=== PATIENT | male | born 1980 | race Caucasian/White ===

== ENCOUNTER 2021-04-06 07:27 | Emergency (ER) | payer SELFPAY ==
[2021-04-06] MEDS ORDERED: Ketorolac 30 MG/ML SDV IVPUSH ONE (07:49)
[2021-04-06] MEDS ORDERED: Sodium Chloride 0.9% 10 ML Syringe FLUSH PRN (07:53)
[2021-04-06] MEDS ORDERED: Sodium Chloride 0.9% 1,000 ML IV ONE (08:28)
[2021-04-06] MEDS ORDERED: cefTRIAXone 1 GM Vial IVPUSH ONE (08:29)
--- NOTE | 2021-04-06 08:40 | EDM.PDOC ---
ED HPI GENERAL MEDICAL PROBLEM - General Chief Complaint: Abdominal Pain Stated Complaint: abdominal pain Time Seen by Provider: 04/06/21 07:50 Source of Information: Reports: Patient History Limitations: Reports: No Limitations - History of Present Illness INITIAL COMMENTS - FREE TEXT/NARRATIVE: c/o left sided abd pain x 2h felt fine yesterday, had usual BM at 5p, never had problems with constipation, no prior abd surgery awoke at 5a and had pain at his left flank, later radiated to left groin sat on stool and had only a small BM he lives between [place] and [place] and drove 50 minutes to the [employer] where he works, had inc'd pain at work, went out to his truck and could not get comfortable, was sweaty and decided to come to ED pain 03/28 on arrival, dec'd 6-12/26 after Toradol 30 mg IV no n/v, no f/c/d, no cough/sob on no meds, has h/o htn, had been on lisinopril but developed a cough and stopped it, he is agreeable to taking another med for BP that does not cause a cough he is a smoker Left Lower Abdomen Pain Score (Numeric/FACES): 10 - Related Data Allergies Allergy/AdvReac Type Severity Reaction Status Date / Time No Known Allergies Allergy Verified 04/06/21 07:42 Home Meds: Home Meds Amoxicillin/Potassium Clav [Augmentin 875-125 Tablet] 1 each PO BID #20 tablet 04/06/21 [Rx] amLODIPine [Norvasc] 5 mg PO DAILY #30 tab 04/06/21 [Rx] ED ROS GENERAL - Review of Systems Review Of Systems: See Below Constitutional: Reports: No Symptoms HEENT: Reports: No Symptoms Respiratory: Reports: No Symptoms Cardiovascular: Reports: No Symptoms Endocrine: Reports: No Symptoms GI/Abdominal: Reports: Abdominal Pain : Reports: No Symptoms Musculoskeletal: Reports: No Symptoms Skin: Reports: No Symptoms Neurological: Reports: No Symptoms Psychiatric: Reports: No Symptoms Hematologic/Lymphatic: Reports: No Symptoms Immunologic: Reports: No Symptoms ED EXAM, RENAL/ - Physical Exam Exam: See Below Exam Limited By: No Limitations General Appearance: Alert, WD/WN, Other (lying prone which he says is most comfortable, is able to roll onto back without difficulty, skin dry now) Ears: Hearing Grossly Normal Nose: Normal Inspection Throat/Mouth: Normal Inspection, Normal Lips, Normal Voice, No Airway Compromise Head: Atraumatic, Normocephalic Neck: Normal Inspection, Supple, Non-Tender, Full Range of Motion Respiratory/Chest: No Respiratory Distress, Lungs Clear, Normal Breath Sounds, Chest Non-Tender Cardiovascular: Regular Rate, Rhythm, No Edema, No Murmur GI/Abdominal: Normal Bowel Sounds, Soft, Other (1+ tender at left SCM, 1-2+ tender at left flank, 1+ tender along left colon down to left mid-inguinal line, nontender elsewhere, no CVAT, nl BS x 4, ND) Back Exam: Normal Inspection, Full Range of Motion. No: CVA Tenderness (R), CVA Tenderness (L) Extremities: Normal Inspection, Normal Range of Motion, Non-Tender, No Pedal Edema Neurological: Alert, Oriented, CN II-XII Intact, Normal Cognition, No Motor/Sensory Deficits Psychiatric: Normal Affect Skin Exam: Warm, Dry, Intact, Normal Color, No Rash Lymphatic: No Adenopathy Course - Vital Signs Last Recorded V/S: Last Vital Signs Temp 36.5 C 04/06/21 07:42 Pulse 84 04/06/21 07:42 Resp 24 H 04/06/21 07:42 BP 218/132 H 04/06/21 07:42 Pulse Ox 97 04/06/21 07:42 - Orders/Labs/Meds Orders: Active Orders 24 hr Category Date Time Status Abdomen Pelvis wo Cont [CT] Stat Exams 04/06/21 08:21 Ordered CULTURE URINE [RM] Stat Lab 04/06/21 08:29 Ordered Sodium Chloride 0.9% [Saline Flush] Med 04/06/21 07:53 Active 10 ml FLUSH ASDIRECTED PRN Saline Lock Insert [OM.PC] Routine Oth 04/06/21 07:53 Ordered Medication Orders Sodium Chloride (Sodium Chloride 0.9% 10 Ml Syringe) 10 ml FLUSH ASDIRECTED PRN PRN Reason: Keep Vein Open Last Admin: 04/06/21 07:55 Dose: 10 ml Documented by: JIMI Labs: Laboratory Tests 04/06/21 04/06/21 04/06/21 Range/Units 07:53 08:55 08:55 WBC 11.7 H (3.2-10.1) x10-3/uL RBC 5.46 (3.90-5.90) x10(6)uL Hgb 17.1 (12.9-17.7) g/dL Hct 52.2 H (38.3-50.1) % MCV 95.6 (80.8-98.7) fL MCH 31.3 (27.0-33.3) pg MCHC 32.7 (28.7-35.3) g/dL RDW 13.9 (12.4-15.0) % Plt Count 164 (117-477) x10(3)uL MPV 8.6 (6.7-11.0) fL Neut % (Auto) 79.9 H (40.3-71.8) % Lymph % (Auto) 11.4 L (15.8-45.3) % Bee % (Auto) 6.9 (5.5-15.2) % Eos % (Auto) 0.6 (0.1-6.8) % Baso % (Auto) 1.2 (0.3-3.8) % Neut # (Auto) 9.4 H (1.7-6.9) x10-3/uL Lymph # (Auto) 1.3 (0.5-4.5) x10-3/uL Bee # (Auto) 0.8 (0.0-1.2) x10-3/uL Eos # (Auto) 0.1 (0.0-0.6) x10-3/uL Baso # (Auto) 0.1 (0.0-0.3) x10-3/uL Sodium 142 (135-145) mmol/L Potassium 4.7 (3.5-5.3) mmol/L Chloride 104 (100-110) mmol/L Carbon Dioxide 28 (21-32) mmol/L BUN 14 (7-18) mg/dL Creatinine 1.2 (0.70-1.30) mg/dL Est Cr Clr Drug Dosing 88.90 mL/min Estimated GFR (MDRD) > 60 (>60) BUN/Creatinine Ratio 11.7 (9-20) Glucose 113 (80-116) mg/dL Calcium 9.4 (8.6-10.2) mg/dL Total Bilirubin 0.6 (0.1-1.3) mg/dL AST 42 H (5-25) IU/L ALT 80 H (12-36) U/L Alkaline Phosphatase 85 (56-112) IU/L C-Reactive Protein (0.5-0.9) mg/dL Total Protein 7.5 (6.0-8.0) g/dL Albumin 4.0 (3.5-5.2) g/dL Globulin 3.5 g/dL Albumin/Globulin Ratio 1.1 Urine Color Yellow (YELLOW) Urine Appearance Slightly cloudy (CLEAR) Urine pH 5.0 (5.0-6.5) Ur Specific [place] 1.030 H (1.010-1.025) Urine Protein 30 H (NEGATIVE) mg/dL Urine Glucose (UA) Normal (NORMAL) mg/dL Urine Ketones 15 H (NEGATIVE) mg/dL Urine Occult Blood Large H (NEGATIVE) Urine Nitrite Positive H (NEGATIVE) Urine Bilirubin Small H (NEGATIVE) Urine Urobilinogen 1 H (NEGATIVE) mg/dL Ur Leukocyte Esterase Small H (NEGATIVE) Urine RBC 40-50 H (0-5) Urine WBC 0-5 (0-5) Ur Squamous Epith Cells Few H (NS,R,O) Urine Bacteria Moderate H (NS) 04/06/21 Range/Units 08:55 WBC (3.2-10.1) x10-3/uL RBC (3.90-5.90) x10(6)uL Hgb (12.9-17.7) g/dL Hct (38.3-50.1) % MCV (80.8-98.7) fL MCH (27.0-33.3) pg MCHC (28.7-35.3) g/dL RDW (12.4-15.0) % Plt Count (117-477) x10(3)uL MPV (6.7-11.0) fL Neut % (Auto) (40.3-71.8) % Lymph % (Auto) (15.8-45.3) % Bee % (Auto) (5.5-15.2) % Eos % (Auto) (0.1-6.8) % Baso % (Auto) (0.3-3.8) % Neut # (Auto) (1.7-6.9) x10-3/uL Lymph # (Auto) (0.5-4.5) x10-3/uL Bee # (Auto) (0.0-1.2) x10-3/uL Eos # (Auto) (0.0-0.6) x10-3/uL Baso # (Auto) (0.0-0.3) x10-3/uL Sodium (135-145) mmol/L Potassium (3.5-5.3) mmol/L Chloride (100-110) mmol/L Carbon Dioxide (21-32) mmol/L BUN (7-18) mg/dL Creatinine (0.70-1.30) mg/dL Est Cr Clr Drug Dosing mL/min Estimated GFR (MDRD) (>60) BUN/Creatinine Ratio (9-20) Glucose (80-116) mg/dL Calcium (8.6-10.2) mg/dL Total Bilirubin (0.1-1.3) mg/dL AST (5-25) IU/L ALT (12-36) U/L Alkaline Phosphatase (56-112) IU/L C-Reactive Protein 0.3 L (0.5-0.9) mg/dL Total Protein (6.0-8.0) g/dL Albumin (3.5-5.2) g/dL Globulin g/dL Albumin/Globulin Ratio Urine Color (YELLOW) Urine Appearance (CLEAR) Urine pH (5.0-6.5) Ur Specific [place] (1.010-1.025) Urine Protein (NEGATIVE) mg/dL Urine Glucose (UA) (NORMAL) mg/dL Urine Ketones (NEGATIVE) mg/dL Urine Occult Blood (NEGATIVE) Urine Nitrite (NEGATIVE) Urine Bilirubin (NEGATIVE) Urine Urobilinogen (NEGATIVE) mg/dL Ur Leukocyte Esterase (NEGATIVE) Urine RBC (0-5) Urine WBC (0-5) Ur Squamous Epith Cells (NS,R,O) Urine Bacteria (NS) Meds: Medications Generic Name Dose Route Start Last Admin Trade Name Freq PRN Reason Stop Dose Admin Sodium Chloride 10 ml 04/06/21 07:53 04/06/21 07:55 Sodium Chloride 0.9% 10 Ml Syringe FLUSH 10 ml ASDIRECTED PRN Administration Keep Vein Open Discontinued Medications Generic Name Dose Route Start Last Admin Trade Name Freq PRN Reason Stop Dose Admin Ceftriaxone Sodium 1 gm 04/06/21 08:29 04/06/21 08:41 Ceftriaxone 1 Gm Vial IVPUSH 04/06/21 08:30 1 gm NOW ONE Administration Sodium Chloride 1,000 mls @ 999 mls/hr 04/06/21 08:28 04/06/21 08:41 Normal Saline IV 04/06/21 09:28 999 mls/hr .BOLUS ONE Administration Ketorolac Tromethamine 30 mg 04/06/21 07:49 04/06/21 07:55 Ketorolac 30 Mg/Ml Sdv IVPUSH 04/06/21 07:50 30 mg ONETIME ONE Administration - Re-Assessments/Exams Free Text/Narrative Re-Assessment/Exam: 04/06/21 10:47 there is 2 mm stone in the bladder on CT, pt now soft with no tenderness at LUQ or L flank, only mild tender still at left mid inguinal line there is an infiltrate in the RML suggestive of pneumonia per Dr Ordonez radiologist, however lungs remain clear, pt understands need for follow x-ray in 2 weeks with PCP to rule out an associated cancer pt has 5 children at home, says he gets every cold that they have will tx with Augmentin 875/125 bid x 10d to cover both UTI (thick bladder on CT, moderate bacteria in UA) and possible pneumonia Departure - Departure Time of Disposition: 10:31 Disposition: Home, Self-Care 01 Condition: Good Clinical Impression: Ureteral stone, Renal colic on left side, Urinary tract infection, Infiltrate of middle lobe of right lung present on imaging study, Elevated blood pressure reading with diagnosis of hypertension - Discharge Information *PRESCRIPTION DRUG MONITORING PROGRAM REVIEWED*: Not Applicable *COPY OF PRESCRIPTION DRUG MONITORING REPORT IN PATIENT MEJIA: Not Applicable Prescriptions: Amoxicillin/Potassium Clav [Augmentin 875-125 Tablet] 1 each PO BID #20 tablet amLODIPine [Norvasc] 5 mg PO DAILY #30 tab Instructions: Renal Colic, Kidney Stones, Urinary Tract Infection, Adult, Hypertension, Adult, How to Take Your Blood Pressure Referrals: PCP,None [Primary Care Provider] - Forms: ED Department Discharge, ED Return to Work/School Form Additional Instructions: For bladder infection and possible pneumonia of the right middle lobe, take amoxicillin-clavulanate 875/125 mg 1 tab 2 times a day for 10 days. For blood pressure, take amlodipine 5 mg 1 tab daily. For pain, if needed, take ibuprofen 200 mg 4 tabs 3 times a day. No work today. See your doctor in [place] in 2 weeks to followup the bladder infection and infiltrate in the lungs. Strain your urine today to catch the stone. Take the stone in with you to show your doctor. It is possible that you feel slightly fatigued these week as your body is adjusting to a more normal blood pressure. Be sure to get adequate rest. Sepsis Event Note (ED) - Evaluation Sepsis Screening Result: No Definite Risk - Focused Exam Vital Signs: Vital Signs Temp Pulse Resp BP Pulse Ox 04/06/21 07:42 36.5 C 84 24 H 218/132 H 97 - My Orders Last 24 Hours: My Active Orders 04/06/21 07:53 Sodium Chloride 0.9% [Saline Flush] 10 ml FLUSH ASDIRECTED PRN Saline Lock Insert [OM.PC] Routine 04/06/21 08:21 Abdomen Pelvis wo Cont [CT] Stat 04/06/21 08:29 CULTURE URINE [RM] Stat - Assessment/Plan Last 24 Hours: My Active Orders 04/06/21 07:53 Sodium Chloride 0.9% [Saline Flush] 10 ml FLUSH ASDIRECTED PRN Saline Lock Insert [OM.PC] Routine 04/06/21 08:21 Abdomen Pelvis wo Cont [CT] Stat 04/06/21 08:29 CULTURE URINE [RM] Stat
--- NOTE | 2021-04-06 11:10 | CT ---
CT ABDOMEN AND PELVIS WITHOUT CONTRAST INDICATION: 3 hours of left flank pain extending to groin, complains of renal colic. Also tender along left colon. TECHNIQUE: Spiral 3.75 mm axial sections were obtained through the abdomen and pelvis without contrast with sagittal and coronal reconstructions 04/06/21 - no comparisons. Total exam DLP was 1873.49 mGy/cm. FINDINGS: In the lower lung cowan and pleural spaces visualized, there is infiltration in the middle lobe which is fairly extensive in appearance and on the supervisor pumping station view appears to extend to the minor fissure. This appearance could be on the basis of pneumonia and it appears to be somewhat pleural based, raising the question of COVID-19. No other areas of infiltrate or effusion could be identified. The unusual appearance could be on the basis of atelectasis of a segmental nature. This should be correlated clinically. The heart did not appear enlarged. No pericardial effusion was seen. The liver is low in density compatible with a fatty liver. No gallstones were demonstrated. The adrenal glands, spleen and pancreas appeared normal. There is a normal appearance at the right kidney except for some minimal fat stranding which may be on the basis of bouts of pyelonephritis and should be correlated clinically. The left kidney showed a greater amount of renal fascial thickening as well as a mild pyelocaliectasis and ureterectasis with some periureteral fat stranding also noted. This appearance may be on the basis of infection and also appears to be on the basis of obstructive uropathy. At the left ureterovesical junction, there is a 2.6 mm calculus which is on the inner portion of the ureterovesical junction and should pass emergently. The urinary bladder wall is thickened which may be on the basis of cystitis. No definite evidence of colitis is identified. The appendix is visualized on coronal images 52 through 64 and appeared normal. No evidence of free air or bowel obstruction was identified. No evidence of a ventral or inguinal hernia was seen. No additional organomegaly, mass lesions or free fluid collections were identified in the abdomen or pelvis. IMPRESSION: 1. Obstructive uropathy on the left due to an almost passed 2.6 mm calculus at the inside portion of the ureterovesical junction on the left. 2. No evidence of renal calcinosis but there is fat stranding suggesting the possibility of previous bouts of pyelonephritis or even pyelonephritis actively on the left especially with a relatively prominent appearance of renal fascial thickening. 3. Fatty liver. 4. Infiltration in the middle lobe which is fairly extensive and could represent subsegmental atelectasis or possibly pneumonia and should be correlated clinically, even COVID-19 is a possibility. 5. Thickening of the wall of the urinary bladder compatible with cystitis is noted. Report was called to Dr. Westfall this morning. [facility]
[2021-04-06 11:25] VITALS: PULSE 82
[2021-04-06 11:26] VITALS: BP 161/97
== END 2021-04-06 11:05 | disposition home or self-care (01) ==
LOC: FB.ED 07:27
DX: N20.1 Calculus of ureter (principal); N39.0 Urinary tract infection, site not specified; I10 Essential (primary) hypertension; R91.8 Other nonspecific abnormal finding of lung field
CPT/HCPCS: 36415; 74176; 80053; 81001; 85025; 86140; 87086; 96374; 96375; 99284-25; J0696; J1885; J7030